=== PATIENT | female | born 2000 | race Caucasian/White ===

== ENCOUNTER 2020-07-05 21:25 | Outpatient (REF) | payer BC, SELFPAY ==
[2020-07-05 14:46] LABS: HCT 40.3 % (36.0-46.0); HGB 13.5 g/dL (11.2-15.7); MCH 27.5 pg (27.0-33.0); MCHC 33.5 % (32.0-36.0); MCV 82.1 fL (80-95); MPV 9.7 fL (8.0-11.0); Platelet Count 334 10^3/uL (130-400); RBC 4.91 10^6/uL (3.93-5.22); RDW 12.4 % (11.7-14.6); RDW-SD 37.2 fL; WBC 9.45 10^3/uL (4.4-10.8)
[2020-07-05 15:21] LABS: Anion Gap 8.1 mmol/L (3-11); BUN 12 mg/dL (7-18); CO2 26.9 mmol/L (21.0-32.0); CREATININE 0.6 mg/dL (0.55-1.02); Calcium 9.2 mg/dL (8.5-10.1); Chloride 103 mmol/L (98-107); Glucose 95 mg/dL (74-106); Potassium 3.8 mmol/L (3.5-5.1); Sodium 138 mmol/L (136-145); TSH (W/Ref FT4) 1.36 uIU/mL (0.36-3.74); Vitamin B12 351 pg/mL (193-986)
== END 2020-07-05 21:26 | disposition home or self-care (01) ==
LOC: NCHCN 21:25
PROVIDERS: PCP Nurse Practitioner Family; Visit Provider Nurse Practitioner Family
DX: F41.9 Anxiety disorder, unspecified (principal); E55.9 Vitamin D deficiency, unspecified
CPT/HCPCS: 80048; 82306; 85027; 82607; 84443

== ENCOUNTER 2020-09-13 13:15 | Outpatient (REF) | payer BC, SELFPAY ==
[2020-09-13 22:36] LABS: Vitamin D 25 Total 47.4 ng/mL (30-100)
== END 2020-09-13 13:16 | disposition home or self-care (01) ==
LOC: NCHCN 13:15
PROVIDERS: PCP Nurse Practitioner Family; Visit Provider Nurse Practitioner Family
DX: E55.9 Vitamin D deficiency, unspecified (principal); F43.23 Adjustment disorder with mixed anxiety and depressed mood; G47.00 Insomnia, unspecified
CPT/HCPCS: 82306

== ENCOUNTER 2023-10-22 13:45 | Outpatient (REF) | payer MEDICAID, SELFPAY ==
[2023-10-24 15:43] LABS: Chlamydia Result Negative (Negative); GC Result Negative (Negative)
== END 2023-10-22 13:46 | disposition home or self-care (01) ==
LOC: NCHCN 13:45
PROVIDERS: PCP Nurse Practitioner Family; Visit Provider Nurse Practitioner Family
DX: Z11.3 Encounter for screening for infections with a predominantly sexual mode of transmission (principal)
CPT/HCPCS: 87491; 87591

== ENCOUNTER 2023-11-23 22:48 | Outpatient (REF) | payer MEDICAID, SELFPAY ==
--- OUTSIDE RECORDS SUMMARY | 2023-11-23 22:51 | XMS_ITS | Referral Summary ---
Author Organization [facility] Address [address] [place] [address] Care Team Providers Care Bonding Equipment Operator Name Role Phone Isiah Mackay MD Primary Care Provider Un available Encounters Date Type Department Care Team Description 10/23/2023 Lab Requisition [facility] Pathology & Laboratory Medicine - [facility] [address], [place] [id number] Outr Resulting Lab, Provider from Last 3 Months Social History Tobacco Use Types Packs/Day Years Used Date Smoking Tobacco: Never Assessed Sex and Gender Information Value Date Recorded Sex Assigned at Not on file Gender Identity Not on file Sexual Orientation Not on file Plan of Treatment Not on file Procedures Procedure Name Priority Date/Time Associated Diagnosis Comments CHLAMYDIA/N. GONORRHOEAE AMPLIFIED NUCLEIC ACID Routine 2023 12:15 EDT from Last 3 Months Results * CHLAMYDIA/N. GONORRHOEAE AMPLIFIED RNA (2023 12:15 EDT) Neisseria gonorrhoeae Result Negative Negative 10/24/2023 15:38 EDT [facility] Chlamydia trachomatis Result Negative Negative 10/24/2023 15:38 EDT [facility] Swab VAGINAL STRUCTURE / Unknown 2023 12:15 EDT 10/23/2023 18:24 EDT Provider Outr Resulting Lab MICROBIOLOGY - GENERAL ORDERABLES [facility] [address] [place] [address] from Last 3 Months Care Teams Bonding Equipment Operator Relationship Specialty Start Date End Date Isiah Mackay MD PCP - General 03/15/11
--- OUTSIDE RECORDS SUMMARY | 2023-11-23 22:51 | XMS_ITS | Encounter Summary ---
Author Organization [facility] Address [address] [place] [address] Care Team Providers Care Apprentice Technician Name Role Phone Isiah Mackay MD Primary Care Provider Un available Encounter Details Date Type Department Care Team (Late st Contact Info) Description 10/23/2023 Lab Requisition [facility] Pathology & Laboratory Medicine - [facility] [address], [place] [id number] Outr Resulting Lab, Provider Social History Tobacco Use Types Packs/Day Years Used Date Smoking Tobacco: Never Assessed Sex and Gender Information Value Date Recorded Sex Assigned at Not on file Gender Identity Not on file Sexual Orientation Not on file documented as of this encounter Plan of Treatment Not on file documented as of this encounter Procedures Procedure Name Priority Date/Time Associated Diagnosis Comments CHLAMYDIA/N. GONORRHOEAE AMPLIFIED NUCLEIC ACID Routine 2023 12:15 EDT documented in this encounter Results * CHLAMYDIA/N. GONORRHOEAE AMPLIFIED RNA (2023 12:15 EDT) Neisseria gonorrhoeae Result Negative Negative 10/24/2023 15:38 EDT [facility] Chlamydia trachomatis Result Negative Negative 10/24/2023 15:38 EDT [facility] Swab VAGINAL STRUCTURE / Unknown 2023 12:15 EDT 10/23/2023 18:24 EDT Provider Outr Resulting Lab MICROBIOLOGY - GENERAL ORDERABLES [facility] [address], [place] [id number] documented in this encounter Visit Diagnoses Not on filedocumented in this encounter Care Teams Apprentice Technician Relationship Specialty Start Date End Date Isiah Mackay MD PCP - General 03/15/11 documented as of this encounter
--- OUTSIDE RECORDS SUMMARY | 2023-11-23 22:51 | XMS_ITS | Clinical Summary ---
Author Organization [facility] Address [address] [place] [address] Care Team Providers Care Narcotics And Vice Detective Name Role Phone Isiah Mackay MD Primary Care Provider Un available Encounters Date Type Department Care Team Description 10/23/2023 Lab Requisition [facility] Pathology & Laboratory Medicine - [facility] [address] [place] [address] Outr Resulting Lab, Provider from Last 3 Months Social History Tobacco Use Types Packs/Day Years Used Date Smoking Tobacco: Never Assessed Sex and Gender Information Value Date Recorded Sex Assigned at Not on file Gender Identity Not on file Sexual Orientation Not on file Plan of Treatment Health Maintenance Due Date Last Done Comments Hepatitis C Screen 1998 Hepatitis B Vaccine (1 of 3 - 19+ 3-dose series) 10/22 COVID-19 Vaccine ( season) 2023 Procedures Procedure Name Priority Date/Time Associated Diagnosis Comments CHLAMYDIA/N. GONORRHOEAE AMPLIFIED NUCLEIC ACID Routine 2023 12:15 EDT from Last 3 Months Results * CHLAMYDIA/N. GONORRHOEAE AMPLIFIED RNA (2023 12:15 EDT) Neisseria gonorrhoeae Result Negative Negative 10/24/2023 15:38 EDT [facility] Chlamydia trachomatis Result Negative Negative 10/24/2023 15:38 EDT [facility] Swab VAGINAL STRUCTURE / Unknown 2023 12:15 EDT 10/23/2023 18:24 EDT Provider Outr Resulting Lab MICROBIOLOGY - GENERAL ORDERABLES [facility] [address] [place] [address] from Last 3 Months Care Teams Narcotics And Vice Detective Relationship Specialty Start Date End Date Isiah Mackay MD PCP - General 03/15/11
== END 2023-11-23 22:49 | disposition home or self-care (01) ==
LOC: NCHCN 22:48
PROVIDERS: PCP Nurse Practitioner Family; Visit Provider Family Medicine
DX: R35.0 Frequency of micturition (principal)
CPT/HCPCS: 87077; 87086; 87186

== ENCOUNTER 2024-09-10 10:30 | Outpatient (REF) | payer MEDICAID, SELFPAY ==
[2024-09-10 15:20] LABS: HCT 42.9 % (36.0-46.0); HGB 14.1 g/dL (11.2-15.7); MCHC 32.9 % (32.0-36.0); MCV 82 fL (80-95); MPV 9.8 fL (8.0-11.0); Platelet Count 388 10^3/uL (130-400); RBC 5.23 10^6/uL (3.93-5.22); RDW 12.6 % (11.7-14.6); RDW-SD 37.8 fL; WBC 8.66 10^3/uL (4.4-10.8)
[2024-09-10 16:42] LABS: ALT 21 U/L (14-59); AST 16 U/L (15-37); Albumin 3.7 g/dL (3.4-5.0); Alkaline Phosphatase 70 U/L (46-116); Anion Gap 7.7 mmol/L (3-11); BUN 7 mg/dL (7-18); Bilirubin, Total 0.5 mg/dL (0.2-1.0); CO2 29.3 mmol/L (21.0-32.0); CREATININE 0.8 mg/dL (0.55-1.02); Chloride 104 mmol/L (98-107); Glucose 72 mg/dL (74-106); Potassium 3.8 mmol/L (3.5-5.1); Sodium 141 mmol/L (136-145); TSH (W/Ref FT4) 2.29 uIU/mL (0.36-3.74); Total Protein 7.9 g/dL (6.4-8.2); Vitamin D 25 Total 17 ng/mL (30-100)
== END 2024-09-10 10:31 | disposition home or self-care (01) ==
LOC: NCHCN 10:30
PROVIDERS: PCP Nurse Practitioner Family; Visit Provider Family Medicine
DX: R53.83 Other fatigue (principal)
CPT/HCPCS: 80053; 82306; 85027; 84443